=== PATIENT | male | born 1990 | race Caucasian/White ===

== ENCOUNTER 2016-04-14 16:43 | Emergency (ER) | payer SELFPAY ==
[~2016-04-14] VITALS: Ht 185.4 cm; Wt 157.5 kg
[2016-04-14 16:49] VITALS: TEMP 37.2; Ht 185.4 cm; Wt 157.5 kg
[2016-04-14] MEDS ORDERED: CEFTRIAXONE SOD INJ 1 GM ADDVIAL IV STA (17:06)
[2016-04-14] MEDS ORDERED: OPTIRAY 320 IV PRN (17:15)
[2016-04-14 17:58] LABS: BASO % 0.4 %; BASO ABS # 0.05 K/uL (0-0.2); COMPLETE YES; EOS % 0.6 %; HEMATOCRIT 45.7 % (42-52); IG% 0.3 %; LYMPH % 19.1 %; LYMPH ABS # 2.46 K/uL (1.2-3.4); MEAN CORPUSCULAR HEMOGLOBIN 28.7 pg (25-34); MEAN CORPUSCULAR HGB CONC 34.1 g/dl (32-36); MEAN PLATELET VOLUME 9.8 fL (7.4-10.4); MONO % 10.6 %; PLATELET COUNT 373 K/uL (130-400); RED BLOOD COUNT 5.44 M/uL (4.7-6.1); WHITE BLOOD COUNT 12.87 K/uL (4.8-10.8)
[2016-04-14 18:15] LABS: BUN/CREATININE RATIO 7.9 (10-20); CALCIUM 9.6 mg/dl (8.5-10.1); CREATININE 0.96 mg/dl (0.60-1.40); POTASSIUM 3.7 mmol/L (3.5-5.1)
--- NOTE | 2016-04-14 18:52 | DIAGNOSTIC IMAGING REPORT ---
CT pelvis PELVIS W/IV CONT ONLY (CT) CLINICAL HISTORY: Abscess inflammation TECHNIQUE: Transaxial acquisition with multi axial reformatted images COMPARISON STUDY: None FINDINGS: Infiltrative change and/or cellulitis of the subcutaneous fat medially lateral to the rectum. A well-defined collection or abscess is not appreciated. Anteverted appear to be unremarkable. Levator sling is intact. Bladder is midline. Intrapelvic structures show mild chronic sigmoid diverticulosis. There is no evidence for acute diverticulitis. Osseous structures appear to be intact. There is no evidence for bony destructive process. IMPRESSION: 1. Mild/moderate subcutaneous infiltrative change and/or cellulitis in a left perirectal location. 2. No evidence for abscess collection or obstructive change. 3. Mild chronic sigmoid diverticulosis. 4. No evidence for acute diverticulitis. Electronically signed by: Ray Cunningham M.D. 04/14/2016 6:51 PM Dictated Date/Time: 04/14/2016 6:48 PM
[2016-04-14] MEDS ORDERED: SULF800T23 PO (19:25)
[2016-04-14] MEDS ORDERED: AMOX875T PO (19:25)
--- NOTE | 2016-04-14 19:27 | EMERGENCY ROOM VISIT NOTE ---
History First contact with patient: 16:55 Chief Complaint: OTHER COMPLAINT Stated Complaint: ABSCESS ON LEFT BUTTOCKS History of Present Illness The patient is a 26 year old male who presents to the Emergency Room with complaints of an abscess on his left buttock. The patient reports that he has had pain in the left buttock for the past one week. He reports that he was previously sick with diarrhea and assumed that he had a rash in the area. He states there has been some swelling in the area. The patient noticed some drainage from the area when he went to use the bathroom [facility]. He went to [facility] and was sent here for further evaluation. The patient rates the pain a 7/10. He has not taken any medications at home for the pain. He denies any history of abscesses. He denies any fevers/chills or difficulty with bowel movements. Review of Systems A complete 10-point Review of Systems was discussed with the patient, with pertinent positives and negatives listed in the History of Present Illness. All remaining Review of Systems questions can be considered negative unless otherwise specified. Social History Smoking Status: Never Smoker Current/Historical Medications Scheduled Amoxicillin & Pot Clavulanate (Augmentin 875-125 mg), 1 TAB PO BID Sulfa/Trimethoprim (Bactrim Ds 800MG/160MG), 1 TAB PO BID Allergies Coded Allergies: Puposky (Unverified Allergy, Intermediate, ANAPHYLAXIS, 04/14/16) Physical Exam Vital Signs Date Time Temp Pulse Resp B/P Pulse Ox O2 Delivery O2 Flow Rate FiO2 04/14/16 19:37 92 16 135/87 97 Room Air 04/14/16 17:57 91 18 144/112 97 Room Air 04/14/16 16:49 37.2 100 20 147/92 96 Room Air Physical Exam VITALS: Vitals are noted on the nurse's note and reviewed by myself. Vital signs stable. GENERAL: This is a 26-year-old male, in no acute distress, nondiaphoretic, well- developed well-nourished. SKIN: There is an Area of induration which measures approximately 4 cm in diameter in the left perirectal region. There is a central opening with no active drainage at this time. HEART: Regular rate and rhythm without murmurs gallops or rubs. LUNGS: Clear to auscultation bilaterally without wheezes, rales or rhonchi. ABDOMEN: Positive bowel sounds x 4. Soft, nontender to palpation. NEURO: Patient was alert and oriented to person place and time. Medical Decision & Procedures ER Provider Diagnostic Interpretation: CT pelvis PELVIS W/IV CONT ONLY (CT) FINDINGS: Infiltrative change and/or cellulitis of the subcutaneous fat medially lateral to the rectum. A well-defined collection or abscess is not appreciated. Anteverted appear to be unremarkable. Levator sling is intact. Bladder is midline. Intrapelvic structures show mild chronic sigmoid diverticulosis. There is no evidence for acute diverticulitis. Osseous structures appear to be intact. There is no evidence for bony destructive process. IMPRESSION: 1. Mild/moderate subcutaneous infiltrative change and/or cellulitis in a left perirectal location. 2. No evidence for abscess collection or obstructive change. 3. Mild chronic sigmoid diverticulosis. 4. No evidence for acute diverticulitis. Laboratory Results 04/14/16 17:42 Red Blood Count 5.44, Mean Corpuscular Volume 84.0, Mean Corpuscular Hemoglobin 28.7, Mean Corpuscular Hemoglobin Concent 34.1, Mean Platelet Volume 9.8, Neutrophils (%) (Auto) 69.0, Lymphocytes (%) (Auto) 19.1, Monocytes (%) (Auto) 10.6, Eosinophils (%) (Auto) 0.6, Basophils (%) (Auto) 0.4, Neutrophils # (Auto ) 8.87, Lymphocytes # (Auto) 2.46, Monocytes # (Auto) 1.37, Eosinophils # (Auto ) 0.08, Basophils # (Auto) 0.05 04/14/16 17:42 Test 04/14/16 17:42 White Blood Count 12.87 K/uL (4.8-10.8) Red Blood Count 5.44 M/uL (4.7-6.1) Hemoglobin 15.6 g/dL (14.0-18.0) Hematocrit 45.7 % (42-52) Mean Corpuscular Volume 84.0 fL (80-100) Mean Corpuscular Hemoglobin 28.7 pg (25-34) Mean Corpuscular Hemoglobin Concent 34.1 g/dl (32-36) Platelet Count 373 K/uL (130-400) Mean Platelet Volume 9.8 fL (7.4-10.4) Neutrophils (%) (Auto) 69.0 % Lymphocytes (%) (Auto) 19.1 % Monocytes (%) (Auto) 10.6 % Eosinophils (%) (Auto) 0.6 % Basophils (%) (Auto) 0.4 % Neutrophils # (Auto) 8.87 K/uL (1.4-6.5) Lymphocytes # (Auto) 2.46 K/uL (1.2-3.4) Monocytes # (Auto) 1.37 K/uL (0.11-0.59) Eosinophils # (Auto) 0.08 K/uL (0-0.5) Basophils # (Auto) 0.05 K/uL (0-0.2) RDW Standard Deviation 42.2 fL (36.4-46.3) RDW Coefficient of Variation 13.8 % (11.5-14.5) Immature Granulocyte % (Auto) 0.3 % Immature Granulocyte # (Auto) 0.04 K/uL (0.00-0.02) Anion Gap 11.0 mmol/L (3-11) Est Creatinine Clear Calc Drug Dose 183.0 ml/min Estimated GFR () 125.9 Estimated GFR (Non- 108.7 BUN/Creatinine Ratio 7.9 (10-20) Calcium Level 9.6 mg/dl (8.5-10.1) Medications Administered Medications (Trade) Dose Ordered Sig/Joyce Route Start Time Stop Time Status Last Admin Dose Admin Ceftriaxone Sodium (Rocephin Inj) 1 gm NOW STAT IV 04/14/16 17:06 04/14/16 17:08 DC 04/14/16 17:56 1 GM Medical Decision Differential diagnosis includes perirectal abscess, cellulitis, Abi's gangrene, among others. The patient was evaluated as above. He was sent here by [facility] for imaging of a perirectal abscess. A CT of the pelvis was performed and showed cellulitis, but no fluid collection. I suspect this is because the abscess has drained on its own. The patient does have a mild leukocytosis, but no fevers. He was given 1 g Rocephin. He will be placed on Augmentin and Bactrim and was encouraged to perform warm compresses at home. He will follow-up with a general surgeon or his primary care provider as needed. He will return for worsening of his current symptoms. He verbalized understanding of my assessment and treatment plan and was discharged home in good condition. Impression Primary Impression: Perirectal cellulitis Departure Information Dispostion Home / Self-Care Condition GOOD Prescriptions Sulfa/Trimethoprim (Bactrim Ds 800MG/160MG) Tab 1 TAB PO BID for 10 Days, #20 TAB Prov: Lorraine Becker PA-C 04/14/16 Amoxicillin & Pot Clavulanate (Augmentin 875-125 mg) 1 Tab Tab 1 TAB PO BID for 10 Days, #20 TAB Prov: Lorraine Becker PA-C 04/14/16 Referrals No Doctor, Assigned (PCP) Tequila Schwab MD Patient Instructions [facility] Additional Instructions You were seen in the Emergency Department for a perirectal abscess. You were prescribed Augmentin and Bactrim to be taken as prescribed. Both of these medications are antibiotics. Stop these medications and contact a medical provider if you were to develop any significant adverse side effects including: wheezing, shortness of breath, passing out, vomiting, or a diffuse rash. Always take antibiotics as directed and COMPLETE the ENTIRE course regardless of the improvement of your symptoms. Proper wound care is essential for adequate wound healing and infection prevention. You can shower and clean the wound with soap and water. Do not scour over the wound. Pat dry with a towel. Do not submerse the wound (i.e. bathe or dish wash) until the sutures have been removed. You can use an antibiotic ointment with a dressing over the wound for the next 3-4 days. After this time you may leave the wound dry and open to the air. If crust develops over the wound you can use a Q-tip to apply a 1:1 peroxide:water solution to clean the wound. You should apply warm compresses to the area frequently for the next few days. Look for signs of increasing infection of the wound including: increased pain, swelling, foul discharge, streaking, or increased temperature. If any of these are noticed you should return to the Emergency Department for further assessment and treatment. As with any laceration you may have received nerve damage to the surrounding tissues. This damage may or may not be permanent. For pain control, you can use the following [id number] medicines (if >12 yo): - Regular strength (325mg/tab) Tylenol (acetaminophen) 2 tabs every 4-6 hours as needed. Do not exceed 12 tablets in a 24 hour period. Avoid taking more than 4 grams (4000 mg) of Tylenol per day. This includes any other sources of acetaminophen you may take on a regular basis. - Regular strength (200 mg/tab) Advil (ibuprofen) 1-2 tabs every 4-6 hours as needed. Do not exceed a dose of 3200 mg per day. You should follow-up with your primary care or a general surgeon regarding the abscess. Return to the emergency department if your symptoms worsen despite treatment course outlined above.
[2016-04-14 19:37] VITALS: BP 135/87; PULSE 92; O2SAT 97
== END 2016-04-14 19:50 | disposition home or self-care (01) ==
LOC: C.EDB 16:46 → C.EDD 19:50
DX: K61.1 Rectal abscess (principal)